=== PATIENT | female | born 1985 | race Caucasian/White ===

== ENCOUNTER 2023-07-19 09:19 | Emergency (ER) | payer MEDICAID, SELFPAY ==
[2023-07-19 09:24] VITALS: BP 106/73; PULSE 82; RESP 18; TEMP 36.5; O2SAT 100; BMI 22.5
--- NOTE | 2023-07-19 09:39 | US_ITS ---
Patient: ALONDRA SALMON Facility:?[facility] Patient ID:?[id number] Site Patient ID:?[id number]. Site :?[id number] Study:?US-Abdomen GB ONLY-07/19/2023 10:37:45 AM Ordering Physician:AMANDA DIOP Final Report: Indication: Right upper quadrant abdominal pain Technique: Sonography the abdomen was performed limited to the structures discussed below Comparison: There are no prior studies for comparison Findings: The gallbladder is normal in appearance. No such, calculus or pericholecystic fluid collections. No sonographic Barnes`s sign. Wall thickness is 1 millimeter which is normal. The common duct measures 4 millimeters which is normal. Impression: Normal-appearing gallbladder and common bile duct. Dictated by Tj Blankenship MD @ 07/19/2023 10:46:24 AM Signed by:?Tj Blankenship MD @07/19/2023 10:46:24 AM (Electronic Signature)
[2023-07-19 09:41] LABS: Appearance Urine Clear (Clear); Bilirubin Urine Negative (Negative); Blood Urine Negative (Negative); Color Urine Yellow (Yellow); Glucose Urine Negative (Negative); Ketones Urine Negative (Negative); Leukocyte Esterase Urine Negative (Negative); Nitrite Urine Negative (Negative); Protein Urine Negative (Negative); Urobilinogen Urine 0.2 (0.2-1.0)
[2023-07-19 10:00] LABS: RBC Urine 0-2 (0-2); Squamous Epithelial Cell Urine Few (None-Few); WBC Urine 0-2 (0-5)
--- NOTE | 2023-07-19 10:01 | ED_ITS ---
HPI - Abdominal Pain General Date Seen: 07/19/23 Chief Complaint: Abdominal Pain Stated Complaint: Abdominal pain, 14 weeks Time Seen by Provider: 07/19/23 09:22 Source: patient Mode of arrival: ambulatory Limitations: no limitations History of Present Illness HPI narrative: Patient is a 38-year-old female currently 14 weeks presenting to the emergency department for upper abdominal pain worse in the right upper quadrant. She states the symptoms have going on for about 3 weeks and seemed to be getting worse. There are intermittent in nature. Has not noticed anything specifically that makes things better or worse. She has been feeling constipated. Denies having symptoms like this with her previous pregnancies. She does state that it feels as if she is further along in her with how much pressure she feels in her upper abdomen. Does states sometimes it makes it feel like it is hard agrees but denies actual shortness of breath. Denies chest pain, fevers, chills, weakness, numbness, headache, vision changes. Has had nausea with some emesis but is not currently nauseated. States this nausea feels different from her previous pregnancies also. Does states she is eating and drinking normally and without issue. No other concerns noted at this time Related Data Home Medications Medication Instructions Recorded Confirmed 07/19/23 Allergies Allergy/AdvReac Type Severity Reaction Status Date / Time Penicillins AdvReac Verified 10/12/22 00:01 Sulfa (Sulfonamide AdvReac Verified 10/12/22 00:01 Antibiotics) Review of Systems Status of ROS Reports: 10 or more systems reviewed and unremarkable except as noted in History and below PFSH PFS Social History Smoking Status: Never smoker How often do you have a drink containing alcohol: never AUDIT-C Alcohol total score: 0 Non-prescribed substance use: denies use Exam Narrative: Exam Narrative: Const: Well-nourished, Well-developed, in mild distress Eyes: PERRL, no conjunctival injection, and symmetrical lids HENT: Atraumatic external nose and ears. Moist mucous membranes. Neck: Symmetric, trachea midline, No thyromegaly. CVS: RRR, No murmurs or gallops. Peripheral pulses 2+ and equal in all extremities RESP: Unlabored respiratory effort. Clear to auscultation bilaterally. GI: Upper abdominal tenderness worst in the right upper quadrant, Nondistended, No rebound or guarding. MSK:Extremities w/o deformity, Normal Active ROM Skin: Warm, Dry. No rashes or lesions. Neuro: Normal Muscle tone, No focal neurological deficits. Psych: Awake, Alert, & Oriented x3. Appropriate mood and affect. Const: Vital Signs, click to edit/add: Vital Signs - 24 hr 07/19/23 09:24 Temperature 97.7 F Pulse Rate [Pulse Oximeter] 82 Respiratory Rate 18 Blood Pressure [Le ft Upper Arm] 106/73 Pulse Oximetry 100 Oxygen Delivery Me thod Room Air Course Vital Signs Vital signs: Initial Vital Signs Temperature 97.7 F 07/19/23 09:24 Temperature Source Temporal Artery Scan 07/19/23 09:24 Pulse Rate 82 07/19/23 09:24 Respiratory Rate 18 07/19/23 09:24 Blood Pressure 106/73 07/19/23 09:24 Blood Pressure Mean 84 07/19/23 09:24 Blood Pressure Position Supine 07/19/23 09:24 Pulse Oximetry 100 07/19/23 09:24 Oxygen Delivery Method Room Air 07/19/23 09:24 Vital Signs Temperature 97.7 F 07/19/23 09:24 Pulse Rate 82 07/19/23 09:24 Respiratory Rate 18 07/19/23 09:24 Blood Pressure 106/73 07/19/23 09:24 Pulse Oximetry 100 07/19/23 09:24 Oxygen Delivery Method Room Air 07/19/23 09:24 Temperature 97.7 F 07/19/23 09:24 Pulse Rate 82 07/19/23 09:24 Respiratory Rate 18 07/19/23 09:24 Blood Pressure 106/73 07/19/23 09:24 Pulse Oximetry 100 07/19/23 09:24 Oxygen Delivery Method Room Air 07/19/23 09:24 MDM - Abdominal Pain MDM Narrative Medical decision making narrative: Patient is a 38-year-old female presenting for abdominal pain. Seems to be worst in the right upper quadrant. She still has a gallbladder. Will do an ultrasound of the right upper quadrant to better evaluate this. Order a CBC, troponin, EKG, urinalysis, CMP, lipase, urinalysis. She could not state it is occasionally feels like it is hard to breathe and is worried falling EKG but this is not overtly sound like a heart or lung issue. Her heart rate is normal at this time with a really do not think this is a PE. Patient's lab work all returned showing no concerning abnormalities. Troponin within normal limits. EKG shows no concerning findings. Gallbladder ultrasound was normal.. She has been having issues with constipation she states and does admit she thinks that could be was causing symptoms. She has taken some stool softeners yesterday without improvement of does admit she only took it 1 time. At this time it seems constipation is most likely the cause of her symptoms so I will discharge her home with information on this. She will follow-up with her primary care provider if symptoms persist Lab Data Labs: Lab Results 07/19/23 07/19/23 07/19/23 Range/Units 09:33 09:39 10:20 WBC 6.75 (4.50-11.00) K/uL RBC 4.19 (4.00-5.20) m/uL Hgb 12.4 (12.0-16.0) gm/dL Hct 36.3 (33.0-51.0) % MCV 87 (80-100) fL MCH 30 (26-34) pg MCHC 34 (32-36) gm/dL RDW Coeff of Nico 12.1 (11.5-15.5) % Plt Count 231 (140-440) K/uL Neut % (Auto) 71.4 (42.0-72.0) % Lymph % (Auto) 23.3 (20-44) % [place] % (Auto) 3.9 (0.0-11.0) % Eos % (Auto) 1.2 (0.0-7.0) % Baso % (Auto) 0.1 (0.0-3.0) % Neut # (Auto) 4.82 (1.7-7.0) K/uL Lymph # (Auto) 1.57 (0.90-2.90) K/uL [place] # (Auto) 0.30 (0.00-0.90) K/UL Eos # (Auto) 0.08 (0.00-0.50) K/uL Baso # (Auto) 0.01 (0.00-0.30) K/uL Abs Immat Gran (auto) 0.01 (0.00-0.30) K/uL Imm/Tot Granulo (auto) 0.1 % Sodium 133 L (135-149) mmol/L Potassium 3.8 (3.6-5.1) mmol/L Chloride 104 (96-114) mmol/L Carbon Dioxide 20 (20-32) mmol/L Anion Gap 9 (7-15) mEq/L BUN 8 (5-24) mg/dL Creatinine 0.4 L (0.5-1.5) mg/dL Estimated Creat Clear 160.84 Estimated GFR 131 ml/min Glucose 81 (60-115) mg/dL Calcium 8.6 (8.4-10.6) mg/dL Total Bilirubin 1.2 (0.1-1.5) mg/dL AST 21 (12-35) U/L ALT 14 (4-35) U/L Alkaline Phosphatase 39 L (40-150) U/L Total Protein 6.7 (6.0-8.3) g/dL Albumin 3.7 (3.3-5.0) g/dL Lipase 64 (23-300) U/L Urine Color Yellow (Yellow) Urine Appearance Clear (Clear) Urine pH 7.0 (5.0-8.5) Ur Specific [place] 1.010 (1.000-1.030) Urine Protein Negative (Negative) Urine Glucose (UA) Negative (Negative) Urine Ketones Negative (Negative) Urine Blood Negative (Negative) Urine Nitrite Negative (Negative) Urine Bilirubin Negative (Negative) Urine Urobilinogen 0.2 (0.2-1.0) Ur Leukocyte Esterase Negative (Negative) Urine RBC 0-2 (0-2) Urine WBC 0-2 (0-5) Ur Squamous Epith Cells Few (None-Few) Urine Bacteria None (None) POC Troponin I 0.00 L (0.01-0.04) ng/ml Imaging Data US - abdomen: Radiologist's impression: Normal-appearing gallbladder and common bile duct. Dictated by Tj Blankenship MD @ 07/19/2023 10:46:24 AM ECG Data Attestation: I personally reviewed and interpreted this ECG as follows: Prior ECG tracings: available for review (10/12/2022) Interpretation: Normal sinus rhythm with rate of 77 beats per minute, normal intervals, normal axis, no ST or T-wave abnormalities. Appears similar to previous EKG on file Discharge Plan Discharge Clinical Impression: Constipation Qualifiers: Constipation type: unspecified constipation type Qualified Code(s): K59.00 - Constipation, unspecified Patient Disposition: Home, Self-Care Condition: Stable Instructions: Constipation (ED) Additional Instructions: The symptoms might be related to constipation. Recommend taking stool soft eners. If you are still having issues I will also provide information for a bowel cleanout regimen. Follow-up with the primary care provider if symptoms persist. Return to emergency department for new or worsening symptoms ?2 - Bisacodyl tablets (Dulcolax? laxative NOT Dulcolax? stool softener) each tablet contains 5 mg of bisacodyl ?1 - 8.3 ounce bottle of Polyethylene Glycol (PEG) 3350 Powder (MiraLAX, SmoothLAX, ClearLAX or generic equivalent) 64 oz. Gatorade? (No red colored flavors) Regular Gatorade?, Gatorade G2?, Powerade?, Powerade Zero?, Pedialyte or Propel?, Liquid IV, and other electrolyte beverages are acceptable. Red flavors are not allowed; all other colors (yellow, green, orange, purple, blue) are okay. It is also okay to buy two 2.12 oz packets of powdered Gatorade that can be mixed with water to a total volume of 64 oz of liquid. ?1 - 10 oz. bottle Magnesium Citrate (No red colored flavors) It is also okay for you to use a 0.5 ounce package of powdered magnesium citrate (17 grams) mixed with 10 ounces of water. ?Begin Clear Liquid Diet (clear liquids include things you can see through). Examples of a clear liquid diet include: water, clear broth or bouillon (gluten free options available), Gatorade, Pedialyte or Powerade, carbonated and non- carbonated soft drinks (Sprite, 7-Up, Gingerale), strained fruit juices without pulp (apple, white grape, white cranberry), Jell-O, popsicles, and up to one cup of black coffee or tea (no milk or cream) each day. The following are not allowed on a clear liquid diet: red liquids, alcoholic beverages, dairy products, protein shakes, cream broths, juice with pulp, products containing oil and chewing tobacco. For additional details on following a clear liquid diet, please see https://[email or web address] com/conditions/thzsx-sbximh-esse ?Take 2 Bisacodyl (Dulcolax) tablets ?4-6 hour later Drink Miralax ? Gatorade preparation Mix 1 bottle of Miralax with 64 oz. of Gatorade in a large pitcher. Drink 1 - 8 oz. glass of the Miralax/Gatorade solution. Continue drinking 1 - 8 oz. glass every 15 minutes thereafter until the mixture is gone Prescriptions: No Action Follow Up/Referrals: Provider,Not a Local [Primary Care Provider] - Stand Alone Forms: Status4th Info Instructions
[2023-07-19 10:43] LABS: Basophils Absolute Auto 0.01 K/uL (0.00-0.30); Basophils Percent Auto 0.1 % (0.0-3.0); Eosinophils Absolute Auto 0.08 K/uL (0.00-0.50); Eosinophils Percent Auto 1.2 % (0.0-7.0); Hematocrit 36.3 % (33.0-51.0); Hemoglobin* 12.4 gm/dL (12.0-16.0); Immature Granulocytes Abs Auto 0.01 K/uL (0.00-0.30); Immature Granulocytes Pct Auto 0.1 %; Lymphocytes Absolute Auto 1.57 K/uL (0.90-2.90); Lymphocytes Percent Auto 23.3 % (20-44); Mean Corpuscular HGB Conc 34 gm/dL (32-36); Mean Corpuscular Hemoglobin 30 pg (26-34); Mean Corpuscular Volume 87 fL (80-100); Monocytes Percent Auto 3.9 % (0.0-11.0); Neutrophils Absolute Auto 4.82 K/uL (1.7-7.0); Neutrophils Percent Auto 71.4 % (42.0-72.0); Platelet Count* 231 K/uL (140-440); RDW Coefficient of Variation % 12.1 % (11.5-15.5); Red Blood Count 4.19 m/uL (4.00-5.20); White Blood Count* 6.75 K/uL (4.50-11.00)
[2023-07-19 10:50] LABS: Slide Review Reflex No
[2023-07-19 10:55] LABS: Albumin* 3.7 g/dL (3.3-5.0); Chloride* 104 mmol/L (96-114); Sodium* 133 mmol/L (135-149)
[2023-07-19 10:56] LABS: Potassium* 3.8 mmol/L (3.6-5.1)
[2023-07-19 10:57] LABS: Creatinine* 0.4 mg/dL (0.5-1.5); Est. Creatinine Clearance* 160.84; Estimated Glomerular Filt Rate 131 ml/min
[2023-07-19 10:58] LABS: Alkaline Phosphatase* 39 U/L (40-150); Anion Gap 9 mEq/L (7-15); Aspartate Amino Transferase* 21 U/L (12-35); Bilirubin Total* 1.2 mg/dL (0.1-1.5); Blood Urea Nitrogen* 8 mg/dL (5-24); Carbon Dioxide* 20 mmol/L (20-32); Lipase* 64 U/L (23-300); Total Protein* 6.7 g/dL (6.0-8.3)
[2023-07-19 10:59] LABS: Alanine Aminotransferase* 14 U/L (4-35); Calcium* 8.6 mg/dL (8.4-10.6); Glucose* 81 mg/dL (60-115)
== END 2023-07-19 11:32 | disposition home or self-care (01) ==
PROVIDERS: Emergency Provider Student in an Organized Health Care Education/Training Program
DX: K59.00 Constipation, unspecified (principal); Z3A.14 14 weeks gestation of pregnancy
CPT/HCPCS: 36415; 76705; 80053; 81001; 83690; 84484; 85025; 87631; 99283

== ENCOUNTER 2024-03-22 20:24 | Emergency (ER) | payer MEDICAID, SELFPAY ==
[2024-03-22 20:28] VITALS: BP 105/66; PULSE 87; RESP 16; TEMP 36.1; O2SAT 96; BMI 24.4
--- NOTE | 2024-03-22 20:57 | CRLHL7_ITS ---
For Patients: As a result of the Century Cures Act, medical imaging exams and procedure reports are released immediately into your electronic medical record. You may view this report before your referring provider. If you have questions, please contact your health care provider. INDICATION: Right upper quadrant pain. TECHNIQUE: Limited right upper quadrant ultrasound examination of the abdomen was performed. Grayscale and color Doppler images were obtained. COMPARISON: None. FINDINGS: Liver: Normal in size and contour. The hepatic echotexture is normal. There are several avascular hyperechoic lesions scattered throughout the visualized hepatic parenchyma measuring up to 1.5 cm, possibly hepatic hemangiomas. Gallbladder: Contracted gallbladder limits evaluation. No pericholecystic fluid. No cholelithiasis. Sonographic Barnes`s sign was negative. Common bile duct: Measures 4 mm. Pancreas: Visualized portions unremarkable. Right kidney: Normal in size. No hydronephrosis. No suspicious renal masses or obstructive urinary calculus. Vascular: Visualized aorta and IVC are unremarkable. IMPRESSION: Unremarkable ultrasound examination of the right upper quadrant. No sonographic evidence of acute cholecystitis. Dictated by Ochoa Wilson MD @ 03/22/2024 9:50:11 PM (Electronically Signed)
--- NOTE | 2024-03-22 21:02 | ED.GENADULT ---
HPI - General Adult General Chief complaint: Abdominal Pain Stated complaint: R flank/upper back pain Time Seen by Provider: 03/22/24 20:44 Source: patient Mode of arrival: ambulatory Limitations: no limitations History of Present Illness HPI narrative: 38-year-old female 7 weeks from her 5th child presents to the emergency department with 2 days of diarrhea progressing into epigastric and right upper quadrant area pain that radiates to the back for the last day. Fever this evening of 100.8. No trauma or injury. No prior history of gallbladder disease. No family history of gallbladder disease. Nursing uncomplicated. Decreased appetite but no no nausea or vomiting. No bloody stools. No prior history of similar symptoms. 1 prior abdominal surgery, an uncomplicated appendectomy in 2018. No other areas of pain or injury. No gynecological or urinary symptoms. Past medical history benign. Most recent was a home , 17 days overdue but was otherwise uncomplicated. No long-term medications. Allergies to penicillin and sulfas. Nonsmoker. ROS notable for the GI symptoms and some mild anorexia as above, otherwise denies times 12 systems. Related Data Home Medications ?Medication ?Instructions ?Recorded ?Confirmed 07/19/23 Allergies Allergy/AdvReac Type Severity Reaction Status Date / Time Penicillins AdvReac Verified 10/12/22 00:01 Sulfa (Sulfonamide AdvReac Verified 10/12/22 00:01 Antibiotics) [facility] Social History Smoking Status: Never smoker How often do you have a drink containing alcohol: never AUDIT-C Alcohol total score: 0 Non-prescribed substance use: denies use Exam Const: Vital Signs, click to edit/add: Vital Signs - 24 hr 03/22/24 20:28 Temperature 97.0 F L Pulse Rate [Pulse Oximeter] 87 Respiratory Rate 16 Blood Pressure [Ri ght Upper Arm] 105/66 Pulse Oximetry 96 Oxygen Delivery Me thod Room Air Documenting provider has reviewed patient's vital signs: yes Common normals: no apparent distress General appearance: cooperative and well kempt Other: Seems mildly uncomfortable, excellent historian. HENMT: Common normals: normocephalic Head and scalp: normocephalic Face and sinus: normal facial exam Mouth: oral and palatal mucosa normal Throat: posterior oropharynx normal Eye: Common normals: conjunctivae normal and no scleral icterus General eye: normal appearance of both eyes Conjunctiva: conjunctiva(e) normal Neck & C-Spine: Common normals: full ROM General: normal visual inspection Resp: Common normals: normal respiratory effort, no use of accessory muscles and clear to auscultation bilaterally Effort & inspection: able to speak in complete sentences Auscultation: clear to auscultation bilaterally Cardio: Common normals: regular rate, regular rhythm, S1 normal heart sound, S2 normal heart sound and no murmurs Rate: regular rate Rhythm: regular rhythm Heart sounds: S1 normal and S2 normal GI: Common normals: Normal to inspection, nondistended, normoactive bowel sounds present, soft to palpation and no hepatosplenomegaly Palpation: soft and no hepatosplenomegaly Other: Moderately tender to right upper quadrant epigastric region. Positive Barnes sign. : Common normals: no CVA tenderness Bladder/kidney exam: no CVA tenderness Back & Pelvis: Common normals: no CVA tenderness Extremity: Common normals: normal to inspection and normal capillary refill Neuro: Speech: speech normal Motor exam: no movement abnormalities noted Psych: Common normals: thought process normal, cooperative and affect normal Appearance: well kempt Thought process: normal thought process Skin: Common normals: no rashes or lesions noted General skin exam: no rashes or lesions noted Course Course ED Course: 38-year-old female presenting with abdominal pain radiating to the back suspicious for gallbladder disease. Fever concerning for acute cholecystitis. Differential diagnosis also including gallstone, pancreatitis, colitis, gastritis, urinary tract infection, kidney stone, gynecological issue, amongst others. Since Barnes sign is positive in she is high risk for gallbladder disease now , would recommend we start with an ultrasound. Typical labs include typical intra-abdominal, test, basic metabolic panel, CRP, procalcitonin, lactate. Labs are pending. Will keep NPO but hold off on any pain medication for now. Await findings. Consider CT if ultrasound is not revealing. Reevaluation(s) Time of Reevaluation #1: 22:01 Reevaluation #1: Counseled patient on findings of normal ultrasound. Labs are relatively normal as well. Only mild elevation in CRP which certainly could still be . At this point, she is feeling well enough that she would like to try to go home. We discussed doing a CT scan to look more closely at the other organs. The only downside to this would be radiation. She is very trustworthy to come back if things worsen. Based on exam, she does think that this is her gallbladder and we discussed how biliary dyskinesia or biliary colic would not show up on ultrasound or any labs. If she has persistent symptoms consider doing a HIDA scan, if she gets sicker though she should come back to the ED right away and we should do a CT scan. She was understanding of this. She will continue to slowly advance her diet, it is okay to use Tylenol and/or ibuprofen as needed for mild discomfort. Through shared decision making we have agreed to truncate hour for workup at this point and she is understanding of the rationale. Written instructions provided, risks and benefits discussed. See discharge. Vital Signs Vital signs: Initial Vital Signs Temperature 97.0 F L 03/22/24 20:28 Temperature Source Temporal Artery Scan 03/22/24 20:28 Pulse Rate 87 03/22/24 20:28 Pulse Rhythm Regular 03/22/24 20:28 Respiratory Rate 16 03/22/24 20:28 Blood Pressure 105/66 03/22/24 20:28 Blood Pressure Mean 79 03/22/24 20:28 Blood Pressure Position Sitting 03/22/24 20:28 Pulse Oximetry 96 03/22/24 20:28 Oxygen Delivery Method Room Air 03/22/24 20:28 Vital Signs Temperature 97.0 F L 03/22/24 20:28 Pulse Rate 87 03/22/24 20:28 Respiratory Rate 16 03/22/24 20:28 Blood Pressure 105/66 03/22/24 20:28 Pulse Oximetry 96 03/22/24 20:28 Oxygen Delivery Method Room Air 03/22/24 20:28 Temperature 97.0 F L 03/22/24 20:28 Pulse Rate 87 03/22/24 20:28 Respiratory Rate 16 03/22/24 20:28 Blood Pressure 105/66 03/22/24 20:28 Pulse Oximetry 96 03/22/24 20:28 Oxygen Delivery Method Room Air 03/22/24 20:28 Medical Decision Making Lab Data Lab results reviewed: Yes I reviewed the patient's lab results Lab results narrative: No significant leukocytosis, no signs of biliary obstruction. C-reactive protein is a little bit elevated but remainder of labs are very reassuring. Urinalysis reassuring., test negative Labs: Lab Results 03/22/24 03/22/24 Range/Units 21:00 21:10 WBC 4.65 (4.50-11.00) K/uL RBC 5.43 H (4.00-5.20) m/uL Hgb 14.1 (12.0-16.0) gm/dL Hct 43.6 (33.0-51.0) % MCV 80 (80-100) fL MCH 26 (26-34) pg MCHC 32 (32-36) gm/dL RDW Coeff of Nico 15.7 H (11.5-15.5) % Plt Count 179 (140-440) K/uL Neut % (Auto) 65.1 (42.0-72.0) % Lymph % (Auto) 26.5 (20-44) % [place] % (Auto) 5.8 (0.0-11.0) % Eos % (Auto) 2.2 (0.0-7.0) % Baso % (Auto) 0.4 (0.0-3.0) % Neut # (Auto) 3.03 (1.7-7.0) K/uL Lymph # (Auto) 1.23 (0.90-2.90) K/uL [place] # (Auto) 0.30 (0.00-0.90) K/UL Eos # (Auto) 0.10 (0.00-0.50) K/uL Baso # (Auto) 0.02 (0.00-0.30) K/uL Abs Immat Gran (auto) 0.00 (0.00-0.30) K/uL Imm/Tot Granulo (auto) 0.0 % Sodium 135 (135-149) mmol/L Potassium 3.7 (3.6-5.1) mmol/L Chloride 102 (96-114) mmol/L Carbon Dioxide 23 (20-32) mmol/L Anion Gap 10 (7-15) mEq/L BUN 17 (5-24) mg/dL Creatinine 0.7 (0.5-1.5) mg/dL Estimated Creat Clear 91.91 Estimated GFR 115 ml/min Glucose 104 (60-115) mg/dL Lactate 1.0 (0.5-1.9) mmol/L Calcium 9.0 (8.4-10.6) mg/dL Total Bilirubin 0.5 (0.1-1.5) mg/dL AST 35 (12-35) U/L ALT 31 (4-35) U/L Alkaline Phosphatase 58 (40-150) U/L C-Reactive Protein 1.8 H (0.5-1.0) mg/dL Total Protein 7.0 (6.0-8.3) g/dL Albumin 4.4 (3.3-5.0) g/dL Lipase 206 (23-300) U/L Procalcitonin 0.13 (<0.50) ng/mL Urine Color Yellow (Yellow) Urine Appearance Clear (Clear) Urine pH 6.0 (5.0-8.5) Ur Specific [place] 1.010 (1.000-1.030) Urine Protein Negative (Negative) Urine Glucose (UA) Negative (Negative) Urine Ketones Negative (Negative) Urine Blood Negative (Negative) Urine Nitrite Negative (Negative) Urine Bilirubin Negative (Negative) Urine Urobilinogen 0.2 (0.2-1.0) Ur Leukocyte Esterase Trace A (Negative) Urine RBC 0-2 (0-2) Urine WBC 0-2 (0-5) Ur Squamous Epith Cells Few (None-Few) Amorphous Sediment Few A (None) Urine Bacteria None (None) Urine HCG, Qual Negative (Negative) Imaging Data US - abdomen: Attestation: I have reviewed the pertinent imaging results. My impression: Normal right upper quadrant ultrasound, gallbladder was somewhat contracted Radiologist's impression: IMPRESSION: Unremarkable ultrasound examination of the right upper quadrant. No sonographic evidence of acute cholecystitis. Dictated by Ochoa Wilson MD @ 03/22/2024 9:50:11 PM Discharge Plan Discharge Clinical Impression: Biliary dyskinesia Patient Disposition: Home w/ Parent or Adult Condition: Stable Instructions: Biliary Colic (ED) Additional Instructions: As we discussed, I think you are having symptoms consistent with biliary dyskinesia. This is a condition that happens when the gallbladder spasms in response mostly to hormone changes but can also be from certain foods in the diet. There does not seem to be any evidence of a gallstone or infection on the ultrasound. Those are the only things that would show up on the ultrasound. Your labs show no infection, no significant inflammation, no pancreatitis, liver strain, kidney stone, urine infection or other significant abnormality. Together, we discussed these findings and will wait and see what happens. If things worsen, please come back to the emergency department, we should do a CT scan then. But at this point, you agree with me that the risk of radiation really seems to outweigh the benefit. If you do continue to have episodes like this, we should get a HIDA scan which is a test to diagnose the biliary dyskinesia formally. The only treatment would be removal of the gallbladder. Often, symptoms improve within a few weeks. Persistent high fever, persistent vomiting, severe pain, bloody stools would not be expected. If you are getting very ill, please come back to the emergency department. Activity Level: Activity as Tolerated Discharge Diet: Regular Prescriptions: No Action Follow Up/Referrals: Provider,Not a Local [Primary Care Provider] - Stand Alone Forms: [employer] Info Instructions
[2024-03-22 21:07] LABS: Appearance Urine Clear (Clear); Bilirubin Urine Negative (Negative); Blood Urine Negative (Negative); Color Urine Yellow (Yellow); Glucose Urine Negative (Negative); Ketones Urine Negative (Negative); Leukocyte Esterase Urine Trace (Negative); Nitrite Urine Negative (Negative); Protein Urine Negative (Negative); Urobilinogen Urine 0.2 (0.2-1.0)
[2024-03-22 21:08] LABS: Ur HCG Qualitative* Negative (Negative)
[2024-03-22 21:19] LABS: Basophils Absolute Auto 0.02 K/uL (0.00-0.30); Basophils Percent Auto 0.4 % (0.0-3.0); Eosinophils Percent Auto 2.2 % (0.0-7.0); Hematocrit 43.6 % (33.0-51.0); Hemoglobin* 14.1 gm/dL (12.0-16.0); Lymphocytes Absolute Auto 1.23 K/uL (0.90-2.90); Lymphocytes Percent Auto 26.5 % (20-44); Mean Corpuscular HGB Conc 32 gm/dL (32-36); Mean Corpuscular Hemoglobin 26 pg (26-34); Mean Corpuscular Volume 80 fL (80-100); Monocytes Percent Auto 5.8 % (0.0-11.0); Neutrophils Absolute Auto 3.03 K/uL (1.7-7.0); Neutrophils Percent Auto 65.1 % (42.0-72.0); Platelet Count* 179 K/uL (140-440); RDW Coefficient of Variation % 15.7 % (11.5-15.5); Red Blood Count 5.43 m/uL (4.00-5.20); White Blood Count* 4.65 K/uL (4.50-11.00)
[2024-03-22 21:35] LABS: Slide Review Reflex No
[2024-03-22 21:36] LABS: Albumin* 4.4 g/dL (3.3-5.0); Chloride* 102 mmol/L (96-114)
[2024-03-22 21:37] LABS: Potassium* 3.7 mmol/L (3.6-5.1); Sodium* 135 mmol/L (135-149)
[2024-03-22 21:39] LABS: Alkaline Phosphatase* 58 U/L (40-150); Anion Gap 10 mEq/L (7-15); Aspartate Amino Transferase* 35 U/L (12-35); Bilirubin Total* 0.5 mg/dL (0.1-1.5); Carbon Dioxide* 23 mmol/L (20-32); Creatinine* 0.7 mg/dL (0.5-1.5); Est. Creatinine Clearance* 91.91; Estimated Glomerular Filt Rate 115 ml/min; Lipase* 206 U/L (23-300)
[2024-03-22 21:40] LABS: Alanine Aminotransferase* 31 U/L (4-35); Blood Urea Nitrogen* 17 mg/dL (5-24); Glucose* 104 mg/dL (60-115)
[2024-03-22 21:40] LABS: Amorphous Sediment Urine Few; RBC Urine 0-2 (0-2); Squamous Epithelial Cell Urine Few (None-Few); WBC Urine 0-2 (0-5)
[2024-03-22 21:42] LABS: C Reactive Protein* 1.8 mg/dL (0.5-1.0)
[2024-03-22 21:56] LABS: Procalcitonin* 0.13 ng/mL (<0.50)
== END 2024-03-22 22:05 | disposition home or self-care (01) ==
PROVIDERS: Emergency Provider Family Medicine
DX: K83.8 Other specified diseases of biliary tract (principal)
CPT/HCPCS: 36415; 76705; 80053; 81001; 81003; 81025; 83605; 83690; 84145; 85025; 86140; 87086; 99283; 99284